=== PATIENT | female | born 1970 | race African-American/Black ===

== ENCOUNTER → 2016-11-21 | Outpatient (CLI) | payer OTHER ==
[2016-10-06 04:09] VITALS: BP 130/80
[~2016-11-21] MED LIST: AMLO10TA2 PO; BACL10TA PO; LEVO112T4 PO; LISI10TA2 PO; NAPR375T3 PO
[2016-11-21 15:48] LABS: BASO # 0.1 x10^3/uL (0.0-0.2); BASO % 1 % (0-3); EOS % 1 % (0-3); HEMATOCRIT 42.1 % (36.0-47.0); HEMOGLOBIN 13.8 g/dL (12.0-15.5); LYMPH # 2.1 x10^3/uL (1.0-4.8); LYMPH % 32 % (24-48); MEAN CORPUSCULAR HEMOGLOBIN 30 pg (25-35); MEAN CORPUSCULAR HGB CONC 33 g/dL (31-37); MEAN CORPUSCULAR VOLUME 91 fL (79-100); MONO % 7 % (0-9); NEUT % 58 % (31-73); PLATELET COUNT 308 x10^3/uL (140-400); RED BLOOD COUNT 4.61 x10^6/uL (3.50-5.40); RED CELL DISTRIBUTION WIDTH 14.4 % (11.5-14.5); WHITE BLOOD COUNT 6.5 x10^3/uL (4.0-11.0)
== END | disposition home or self-care (01) ==
LOC: SURGPAT 14:42
PROVIDERS: ATTEND Obstetrics & Gynecology
DX: Z01.818 Encounter for other preprocedural examination (principal)
CPT/HCPCS: 36415; 85027

== ENCOUNTER 2016-11-28 05:45 | Day surgery (SDC) | payer OTHER ==
[2016-11-28] MEDS ORDERED: CEFOXITIN 1GM IVPB FOR OMNI 50 ML IV PRN (06:00)
[2016-11-28] MEDS ORDERED: MORPHINE SULFATE 2 MG/ML DISP.SYRIN. IV PRN (07:00)
[2016-11-28] MEDS ORDERED: IV RINGERS,LACTATED 1000ML 1,000 ML IV SCH (07:00)
[2016-11-28] MEDS ORDERED: PROCHLORPERAZINE 10 MG/2 ML VIAL. IV PRN (07:00)
[2016-11-28] MEDS ORDERED: FENTANYL PF 100 MCG/2 ML VIAL. IV PRN (07:00)
[2016-11-28] MEDS ORDERED: ONDANSETRON PF 4 MG/2 ML VIAL. IV PRN (07:00)
[2016-11-28] MEDS ORDERED: HYDROMORPHONE 2 MG/ML VIAL. IV PRN (07:00)
[2016-11-28] MEDS ORDERED: LIDOCAINE 1% 1 ML SYRINGE. ID PRN (07:00)
[2016-11-28] MEDS ORDERED: 0.9 % SODIUM CHLORIDE 50 ML VIAL. IJ ONE (07:03)
[2016-11-28] MEDS ORDERED: METHYLENE BLUE 1% 1 ML VIAL. ONE (07:03)
[2016-11-28] MEDS ORDERED: BUPIVACAINE-EPI 0.25%-1:200000 MPF 30 ML VIAL. ONE (07:03)
[2016-11-28] MEDS ORDERED: ROCURONIUM 50 MG/5 ML VIAL. ONE (07:06)
[2016-11-28] MEDS ORDERED: DEXAMETHASONE SOD PHOS 20 MG/5 ML VIAL. ONE (07:06)
[2016-11-28] MEDS ORDERED: LIDOCAINE 2% 100 MG/5 ML DISP.SYRIN. ONE (07:06)
[2016-11-28] MEDS ORDERED: FAMOTIDINE 20 MG/2 ML VIAL ONE (07:06)
[2016-11-28] MEDS ORDERED: PROPOFOL 20 ML IV ONE (07:06)
[2016-11-28] MEDS ORDERED: ONDANSETRON PF 4 MG/2 ML VIAL. ONE (07:06)
[2016-11-28] MEDS ORDERED: FENTANYL PF 100 MCG/2 ML VIAL. ONE (07:06)
[2016-11-28] MEDS ORDERED: KETOROLAC 30 MG/ML SYRINGE FOR OR. INJ ONE (07:55)
[2016-11-28] MEDS ORDERED: PHENYLEPHRINE in 0.9% NACL PF 1 MG/10 ML DISP.SYRIN. IV ONE (07:55)
[2016-11-28] MEDS ORDERED: NEOSTIGMINE METHYLSULFATE 5 MG/5 ML SYRINGE. ONE (08:39)
[2016-11-28] MEDS ORDERED: GLYCOPYRROLATE 1 MG/5 ML VIAL. ONE (08:39)
--- NOTE | 2016-11-28 08:59 | PDOC ---
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 Jackie Woody Rug Hooker Dr. Maggi Gonsales Anesthesiologist see anesthesia records Anesthesia Type: General Blood Loss 25cc IV Fluid see anesthesia records Urine Output 100cc clear urine via camara Specimens Obtained left tube and ovary Findings enlarged cyst of left ovary, omental adhesions to anterior abdominal wall, cyst adhesed to left sidewall and small bowel to vaginal cuff, right ovary adhesed to right sidewall Complications none Additional Remarks [id number] JACKIE WOODY MD Nov 28, 2016 08:59
[2016-11-28] MEDS ORDERED: MAG HYDROX/AL HYDROX/SIMETH 30 ML ORAL.SUSP PO PRN (09:00)
[2016-11-28] MEDS ORDERED: 0.9 % SODIUM CHLORIDE 10 ML DISP.SYRIN. IV PRN (09:00)
[2016-11-28] MEDS ORDERED: DIPHENHYDRAMINE 50 MG/ML VIAL IV PRN (09:00)
[2016-11-28] MEDS ORDERED: HYDROCODONE/APAP 5/325MG TABLET. PO PRN (09:00)
[2016-11-28] MEDS ORDERED: CALCIUM CARBONATE 500 MG TAB.CHEW PO PRN (09:00)
[2016-11-28] MEDS ORDERED: NALOXONE 0.4 MG/ML VIAL. IV PRN (09:00)
[2016-11-28] MEDS ORDERED: SIMETHICONE 80 MG TAB.CHEW PO PRN (09:00)
[2016-11-28] MEDS ORDERED: DIPHENHYDRAMINE HCL 25 MG CAPSULE PO PRN (09:00)
[2016-11-28] MEDS ORDERED: OXYC-323 PO (09:16)
[2016-11-28] MEDS: FENTANYL PF 100 MCG/2 ML VIAL. IV PRN ×2 (09:19→09:32)
[2016-11-28] MEDS ORDERED: OXYCODONE/APAP 5/325 TABLET. PO ONE (10:30)
[2016-11-28 11:15] VITALS: BP 124/85
--- NOTE | 2016-11-28 12:00 | OP ---
DATE OF SURGERY: 11/28/2016 PREOPERATIVE DIAGNOSES: Enlarged left ovarian cyst with pelvic pain. POSTOPERATIVE DIAGNOSES: Enlarged left ovarian cyst with pelvic pain with a clear cystic lesion of the left ovary with pelvic adhesive disease. PROCEDURE: Operative laparoscopy with LSO and enterolysis with small bowel stepped to the vaginal cuff, omentum to the anterior abdominal wall, and left and right ovaries were stepped to the sidewall respectively. SURGEONS: Carmelo Woody M.D. and Maggi Gonsales MD ANESTHESIA: General. ESTIMATED BLOOD LOSS: 25 mL. URINE OUTPUT: 100 mL clear via Reyez catheter. SPECIMEN REMOVED: Left tube and ovary. FINDINGS: Enlarged cyst of the left ovary, omental adhesions to anterior abdominal wall, enlarged cystic lesions of the left ovary adhesed to the left sidewall with omentum adhesed to the left ovarian complex and small bowel was adhesed to the vaginal cuff on the right side and then once it was peeled away the right tube and ovary were kind of filmy encased to the right sidewall. COMPLICATIONS: None. DESCRIPTION OF PROCEDURE: This patient was taken to the operating room where general anesthesia was placed. The patient was placed in a dorsal lithotomy position in [facility]. The patient's abdomen and vagina were prepped and draped in the normal sterile fashion and a Reyez catheter had been previously inserted under sterile technique. At this point, a sponge stick was placed in the patient's vagina. Top gloves were discarded and changed. Attention was then turned to the abdomen where a small supraumbilical and skin incision was made with the scalpel. A curved Gissell was used to dissect through the subcuticular layer to the fascia. A 5 mm Visiport was used to directly enter the abdominal cavity. Opening patient pressure was 3 mmHg. Carbon dioxide gas was used to appropriately insufflate the abdominal cavity to maintain a pressure of 15 mmHg. The patient was placed in Trendelenburg position. The omental adhesions were seen on the left anterior abdominal wall. We went above that and placed the left lower quadrant port, a 5 mm Ethicon disposable port atraumatically. The right side was clear. It was also placed atraumatically in a clear area after transilluminating the anterior abdominal wall. Once this was done, the LigaSure Advance was used to take down the omental adhesions on the left side. Then, going down and finding the enlarged left cystic ovary first having to peel off some of the filmy peritoneal and omental adhesions finding a bluish, hued, very enlarged, probably 8-10 cm consistent with her 10 cm sonogram. It did appear cystic in nature. We were able to do it, it was just very hard to manipulate it after taking down all the peritoneal and omental adhesions off of it, elevating it, and peeling it off the sidewall as well. It was decided to take a clear area and go ahead and opened up the cyst and clear yellow straw-colored fluid did return, benign cystic fluid. At this point, we were able to manipulate it better, peeled it off the sidewall, find the IP ligament and cauterize and cut it high right into the ovary and then peeled the rest of the cyst wall off. Once it was completely free, we did take down the small bowel off the vaginal cuff. We did find the right tube and ovary and take off some of the encasing peritoneal adhesions off of it and make sure it looked normal. Normal appendix was seen, normal liver edge was seen, the bowel looked grossly normal. There was no active bleeding at all. So at this point, a 10-12 suprapubic port was placed over ____ Pfannenstiel skin incision. A 10-12 atraumatic port was placed and the Endocatch bag was placed through this. The specimen was placed through this and removed through the port. Once this was done, the 10-12 was closed using a #0 Vicryl in an interrupted fashion and nylon was placed on the skin here, then ____ irrigating copiously to make sure nothing was bleeding and it was not. The right and left lower quadrant ports were removed under direct visualization as well. These two were hemostatic. Gas was released from the umbilical port. All sponge, lap and needle counts were correct x 2 and the other three incisions were closed with nylon at the level of the skin and injected with a total of 10 mL of local. The patient tolerated the procedure well. A sponge stick was removed. There were no complications. The patient was awakened from anesthesia, extubated, and taken to recovery room in stable condition. CARMELO WOODY MD DR: RAMIRO/tosha JOB#: [id number] / [id number]
--- NOTE | 2016-11-29 16:32 | PATHOLOGY ---
PATHOLOGY REPORT * * * * * * * * FINAL DIAGNOSIS: Fallopian tube and ovary, laparoscopic left salpingo-oophorectomy: - Serous cystadenoma of ovary, with focal hemosiderin laden macrophages within cyst wall. - Few cystic follicles of ovary. - Dense tubo-ovarian adhesions. COMMENT: There is no evidence of malignancy. (JPM:mgemre; d/t: 11/29/16) REPORT ELECTRONICALLY SIGNED BY: Magdy Jackson M.D. DATE/TIME: 11/29/2016 16:31 * * * * * * * * GROSS PATHOLOGY: The specimen is received in formalin, labeled "Maggi Ramos-left ovary and fallopian tube." Received is a 20 g, 5.4 x 3.7 x 1.5 cm previously disrupted and cystic ovary with attached fimbriae. A distinct fallopian tube is not grossly identified. The external surface of the ovary is pink-yang and wrinkled. Sectioning reveals multiple thin-walled and uniloculated cysts ranging from 0.2-4.3 cm in greatest dimension. The internal lining of the cysts are white-yang and wrinkled, with possible adherent yang-brown papillary excrescences. The remaining ovarian stroma is pink-yang and displays a jorgensen yellow and hemorrhagic corpus luteum. Creative Services Writer sections to include the possible fimbria and cystic ovary are submitted in cassettes A1-A4. (TTL; 11/28/2016) INITIAL CPT CODE(S): 20127 Professional services performed [place] [address] Technical services performed by [facility] at [address] [place] [address], [address], [place] [address]. SPECIMEN(S) RECEIVED: A.Left ovary and fallopian tube CLINICAL HISTORY: Left ovarian cyst, pelvic pain PATIENT: MAGGI RAMOS /AGE: 12 1970 (Age: 46) PATIENT #: [id number] CASE #: SPECIMEN COLLECTION DATE: 11/28/2016 SPECIMEN RECEIVED DATE: 11/28/2016 [facility] - [address] [place] [address] - PHONE: [phone] * * * END OF REPORT * * *
== END 2016-11-28 11:25 | disposition home or self-care (01) ==
LOC: SURG 05:45
PROVIDERS: ATTEND Obstetrics & Gynecology
DX: D27.1 Benign neoplasm of left ovary (principal); K66.0 Peritoneal adhesions (postprocedural) (postinfection); I10 Essential (primary) hypertension; Z98.51 Tubal ligation status; Z90.710 Acquired absence of both cervix and uterus; E03.9 Hypothyroidism, unspecified; F17.200 Nicotine dependence, unspecified, uncomplicated
CPT/HCPCS: 36415; 58661; 86850; 86900; 86901; J0694; J1100; J1885; J2270; J2370; J2405; J2704; J2710; J3010; J3490; S0028; 88307; C1769; C1782; J7030; J7120; Q9968

== ENCOUNTER 2017-11-18 04:53 | Emergency (ER) | payer OTHER ==
[2017-11-18] MEDS: ONDANSETRON ODT 4 MG TAB.RAPDIS. PO (05:27)
[2017-11-18] MEDS: IBUPROFEN 800 MG TABLET. PO (05:27)
[2017-11-18] MEDS: ACETAMINOPHEN 500 MG TABLET PO (05:27)
== END 2017-11-18 05:32 | disposition home or self-care (01) ==
LOC: ER 04:53
DX: B34.9 Viral infection, unspecified (principal); E03.9 Hypothyroidism, unspecified; I10 Essential (primary) hypertension; Z90.49 Acquired absence of other specified parts of digestive tract; Z98.51 Tubal ligation status
CPT/HCPCS: 99284; Q0162

== ENCOUNTER 2019-01-31 14:27 | Emergency (ER) | payer OTHER ==
[~2019-01-31] VITALS: Ht 167.6 cm; Wt 104.3 kg
[~2019-01-31 14:27] MED LIST changes: -AMLO10TA2 PO; +AMLO10TA8 PO; +NAPR-695 PO; -NAPR375T3 PO; +ONDA4TAB10 SL; +OXYC1TAB15 PO
[2019-01-31 15:34] LABS: BASO # 0.1 x10^3/uL (0.0-0.2); BASO % 1 % (0-3); EOS # 0.1 x10^3/uL (0.0-0.7); EOS % 2 % (0-3); HEMATOCRIT 42.4 % (36.0-47.0); LYMPH # 2.2 x10^3/uL (1.0-4.8); LYMPH % 35 % (24-48); MEAN CORPUSCULAR HEMOGLOBIN 30 pg (25-35); MEAN CORPUSCULAR HGB CONC 33 g/dL (31-37); MEAN CORPUSCULAR VOLUME 90 fL (79-100); MONO # 0.4 x10^3/uL (0.0-1.1); MONO % 7 % (0-9); NEUT # 3.6 x10^3uL (1.8-7.7); NEUT % 56 % (31-73); PLATELET COUNT 317 x10^3/uL (140-400); RED BLOOD COUNT 4.69 x10^6/uL (3.50-5.40); RED CELL DISTRIBUTION WIDTH 15.6 % (11.5-14.5); WHITE BLOOD COUNT 6.4 x10^3/uL (4.0-11.0)
--- NOTE | 2019-01-31 15:36 | PHYS DOC ---
Past Medical History Past Medical History: Hypertension, Hypothyroid Past Surgical History: Hysterectomy, Tubal ligation, Other Additional Past Surgical Histo: OVARY REMOVED Smoking: Cigarettes, Less than 1pk/day Additional Information: 0.25 PPD Alcohol Use: None Drug Use: None Adult General Chief Complaint Chief Complaint: DIZZY/LIGHT HEADED HPI HPI Patient is a 48 year old female who presents with complaining of dizziness and right-sided chest pain. Patient complaining of intermittent episodes of positional dizziness with a standing up since yesterday that last for a few seconds and associated with blurred vision without headache, focal neuro deficit, fever and chills, headache. Patient also complaining of right upper chest and shoulder pain that getting worse with movement of right shoulder and rated her pain 5/10. Patient said the pain radiated to her shoulder blade. Patient complaining of nausea without vomiting. Patient also complaining of discomfort feeling in her upper abdomen. Patient denies diarrhea, urinary symptoms, recent head injury. Patient states she had episodes of dizziness previously and diagnosed with elevation of blood pressure. Patient states she has history of hypertension and ran out of her medication for couple days but it was re-started today. Review of Systems Review of Systems Constitutional: Denies fever or chills [] Eyes: Denies change in visual acuity, redness, or eye pain , reports blurred vision[] HENT: Denies nasal congestion or sore throat [] Respiratory: Denies cough or shortness of breath [] Cardiovascular: No additional information not addressed in HPI [] GI: Reports abdominal pain, nausea, denies vomiting, bloody stools or diarrhea [ ] : Denies dysuria or hematuria [] Musculoskeletal: Denies back pain or joint pain [] Integument: Denies rash or skin lesions [] Neurologic: Denies headache, focal weakness or sensory changes [] Endocrine: Denies polyuria or polydipsia [] All other systems were reviewed and found to be within normal limits, except as documented in this note. Allergies Allergies Allergies Coded Allergies Type Severity Reaction Last Updated Verified No Known Drug Allergies 11/28/16 No Physical Exam Physical Exam Constitutional: Well developed, well nourished, mild distress, non-toxic appearance. [] HENT: Normocephalic, atraumatic, bilateral external ears normal, oropharynx moist, no oral exudates, nose normal. [] Eyes: PERRLA, EOMI, conjunctiva normal, no discharge. [] Neck: Normal range of motion, no tenderness, supple, no stridor. [] Cardiovascular:Heart rate regular rhythm, no murmur [] Lungs & Thorax: Bilateral breath sounds clear to auscultation [] Abdomen: Bowel sounds normal, soft, no tenderness, no masses, no pulsatile masses. [] Skin: Warm, dry, no erythema, no rash. [] Back: No tenderness, no CVA tenderness. [] Extremities: No tenderness, no cyanosis, no clubbing, ROM intact, no edema. [] Neurologic: Alert and oriented X 3, normal motor function, normal sensory function, no focal deficits noted. [] Psychologic: Affect normal, judgement normal, mood normal. [] Current Patient Data Vital Signs Vital Signs Date Time Temp Pulse Resp B/P (MAP) Pulse Ox O2 Delivery O2 Flow Rate FiO2 01/31/19 14:46 98.7 71 16 135/84 (101) 98 Room Air 98.7 Lab Values Laboratory Tests Test 01/31/19 15:06 01/31/19 15:26 01/31/19 15:55 Glucose (Fingerstick) 111 mg/dL (70-99) H White Blood Count 6.4 x10^3/uL (4.0-11.0) Red Blood Count 4.69 x10^6/uL (3.50-5.40) Hemoglobin 14.0 g/dL (12.0-15.5) Hematocrit 42.4 % (36.0-47.0) Mean Corpuscular Volume 90 fL (79-100) Mean Corpuscular Hemoglobin 30 pg (25-35) Mean Corpuscular Hemoglobin Concent 33 g/dL (31-37) Red Cell Distribution Width 15.6 % (11.5-14.5) H Platelet Count 317 x10^3/uL (140-400) Neutrophils (%) (Auto) 56 % (31-73) Lymphocytes (%) (Auto) 35 % (24-48) Monocytes (%) (Auto) 7 % (0-9) Eosinophils (%) (Auto) 2 % (0-3) Basophils (%) (Auto) 1 % (0-3) Neutrophils # (Auto) 3.6 x10^3uL (1.8-7.7) Lymphocytes # (Auto) 2.2 x10^3/uL (1.0-4.8) Monocytes # (Auto) 0.4 x10^3/uL (0.0-1.1) Eosinophils # (Auto) 0.1 x10^3/uL (0.0-0.7) Basophils # (Auto) 0.1 x10^3/uL (0.0-0.2) Sodium Level 143 mmol/L (136-145) Potassium Level 3.6 mmol/L (3.5-5.1) Chloride Level 104 mmol/L (98-107) Carbon Dioxide Level 29 mmol/L (21-32) Anion Gap 10 (6-14) Blood Urea Nitrogen 10 mg/dL (7-20) Creatinine 0.9 mg/dL (0.6-1.0) Estimated GFR (Cockcroft-Gault) 80.5 BUN/Creatinine Ratio 11 (6-20) Glucose Level 102 mg/dL (70-99) H Calcium Level 8.7 mg/dL (8.5-10.1) Magnesium Level 2.0 mg/dL (1.8-2.4) Total Bilirubin 0.2 mg/dL (0.2-1.0) Aspartate Amino Transferase (AST) 13 U/L (15-37) L Alanine Aminotransferase (ALT) 18 U/L (14-59) Alkaline Phosphatase 52 U/L (46-116) Creatine Kinase 52 U/L (26-192) Troponin I Quantitative < 0.017 ng/mL (0.000-0.055) CJ-Orr-H-Type Natriuretic Peptide 92 pg/mL (0-124) Total Protein 7.1 g/dL (6.4-8.2) Albumin 3.4 g/dL (3.4-5.0) Albumin/Globulin Ratio 0.9 (1.0-1.7) L Lipase 102 U/L (73-393) Laboratory Tests 01/31/19 15:26 Laboratory Tests 01/31/19 15:55 EKG EKG EKG interpreted by me. EKG at 1501 showed normal sinus rhythm at rate of 67, left donahue axis, nonspecific T-wave abnormalities, no acute ST and T-wave abnormalities. Radiology/Procedures Radiology/Procedures [facility] [address] [place] [address] IMAGING REPORT Signed PATIENT: BELÉN RAMOS ACCOUNT: [id number] : 1970 LOCATION: ER AGE: 48 SEX: F EXAM STATUS: REG ER ORD. PHYSICIAN: MIK RYAN MD REASON: abdominal pain and nausea PROCEDURE: ABDOMEN LTD ABDOMEN LTD History: Abdominal pain, nausea Comparison: None. Findings: Multiple sonographic images of the abdomen are submitted. There is no abnormality of the visualized pancreas, tail not well visualized due to bowel gas and patient's body habitus. Right kidney measured 10.8 x 4.7 x 4.1 cm, no hydronephrosis. Inferior vena cava is poorly visualized due to bowel gas and patient's body habitus. Visualized abdominal aortic aortic caliber is within normal limits. Gallbladder is present, contracted appearance although no intraluminal abnormality or wall thickening. Common bile duct is within normal limits at 0.3 cm. There is some coarsening of the hepatic echotexture, likely Juan's morphology of the liver. Right lobe of the liver measured 19.1 cm longitudinal. Impression: 1. There is nonspecific contracted appearance of the gallbladder although no intraluminal abnormality or wall thickening. There is no biliary ductal dilatation. 2. There may be hepatic steatosis. Electronically signed by: Sanjana Douglas MD (01/31/2019 4:22 PM) [id number] DICTATED and SIGNED BY: SANJANA DOUGLAS MD DATE: 01/31/19 1622 [facility] [address] [place] [address] IMAGING REPORT Signed PATIENT: BELÉN RAMOS ACCOUNT: [id number] : 1970 LOCATION: ER AGE: 48 SEX: F EXAM STATUS: REG ER ORD. PHYSICIAN: MIK RYAN MD REASON: dizziness,ALSO CT AND SONO PROCEDURE: PORTABLE CHEST 1V PORTABLE CHEST 1V History: PT STATES CHEST PAIN. . No prior study for comparison. Cardiac silhouette is borderline prominent, but likely accentuated by portable technique. No evidence of pneumothorax. No pleural effusion. No focal airspace consolidation. Regional skeleton appears grossly intact. IMPRESSION: No acute infiltrate. Electronically signed by: Deangelo Foster MD (01/31/2019 4:27 PM) [id number] DICTATED and SIGNED BY: DEANGELO FOSTER MD DATE: 01/31/19 1627 [facility] [address] [place] [address] IMAGING REPORT Signed PATIENT: BELÉN RAMOS ACCOUNT: [id number] : 1970 LOCATION: ER AGE: 48 SEX: F EXAM STATUS: REG ER ORD. PHYSICIAN: MIK RYAN MD REASON: dizziness PROCEDURE: CT HEAD WO CONTRAST CT HEAD WO CONTRAST History: Dizziness, nausea Comparison: None. Technique: Noncontrast CT imaging was performed of the head. Exposure: One or more of the following individualized dose reduction techniques were utilized for this examination: 1. Automated exposure control 2. Adjustment of the mA and/or kV according to patient size 3. Use of iterative reconstruction technique. Findings: No acute extra-axial or parenchymal hemorrhage is identified. There is no significant intra-axial mass effect, midline shift, or extra-axial fluid collection. The rivera-white differentiation of the major vascular territories is preserved. The ventricles, sulci, and cisterns are within normal limits in size and configuration. Mastoid air cells are aerated. There is very minimal sphenoid sinus and left maxillary sinus mucosal thickening. No acute calvarial abnormality is identified. Impression: 1. No acute intracranial abnormality is identified. Electronically signed by: Sanjana Douglas MD (01/31/2019 4:16 PM) [facility] DICTATED and SIGNED BY: SANJANA DOUGLAS MD DATE: 01/31/19 1616 Course & Med Decision Making Course & Med Decision Making Pertinent Labs and Imaging studies reviewed. (See chart for details) Evaluation of patient in ER showed 48-year-old female patient with complaining of episodes of dizziness after ran out of her blood pressure medication for couple days. Patient also complaining of left-sided chest pain. Patient had unremarkable physical exam and labs and EKG and CT head and gallbladder ultrasound. Patient informed about test results and needs to continue her blood pressure medication. Patient felt comfortable to go home without taking any medication from emergency room. Dragon Disclaimer Dragon Disclaimer This electronic medical record was generated, in whole or in part, using a voice recognition dictation system. Departure Departure Impression: Primary Impression: Dizziness Additional Impressions: Right-sided chest pain Tobacco abuse Tobacco abuse counseling Disposition: HOME, SELF-CARE (1740) Condition: IMPROVED Referrals: NADER DUMONT APRN (PCP) Patient Instructions: Chest Wall Pain, Dizziness, Managing Your High Blood Pressure, Smoking Cessation, Tips For Success Additional Instructions: Drink plenty of liquids Follow-up with your primary care physician in 3-5 days Return to ER if not getting better Problem Qualifiers MIK RYAN MD Jan 31, 2019 15:36
--- NOTE | 2019-01-31 16:05 | EKG ---
[facility] [address] [place] [address] Test Date: 2019-01-31 Test Time: 15:01:46 Pat Name: BELÉN RAMOS Department: Room: Gender: F Mother Helper: : 1970 Requested By: MIK RYAN Order Number: [id number] Reading MD: Chad Moyer MD Measurements Intervals Timpson Rate: 66 P: 46 [place]: 158 QRS: -16 QRSD: 74 T: 54 QT: 404 QTc: 429 Interpretive Statements SINUS RHYTHM CONSIDER INFERIOR INFARCT Electronically Signed On 02-04-2019 15:51:14 CDT by Chad Moyer MD
[2019-01-31 16:17] LABS: CALCIUM 8.7 mg/dL (8.5-10.1); CREATININE 0.9 mg/dL (0.6-1.0); GFR 80.5; POTASSIUM 3.6 mmol/L (3.5-5.1)
--- NOTE | 2019-01-31 16:19 | RAD ---
CT HEAD WO CONTRAST History: Dizziness, nausea Comparison: None. Technique: Noncontrast CT imaging was performed of the head. Exposure: One or more of the following individualized dose reduction techniques were utilized for this examination: 1. Automated exposure control 2. Adjustment of the mA and/or kV according to patient size 3. Use of iterative reconstruction technique. Findings: No acute extra-axial or parenchymal hemorrhage is identified. There is no significant intra-axial mass effect, midline shift, or extra-axial fluid collection. The rivera-white differentiation of the major vascular territories is preserved. The ventricles, sulci, and cisterns are within normal limits in size and configuration. Mastoid air cells are aerated. There is very minimal sphenoid sinus and left maxillary sinus mucosal thickening. No acute calvarial abnormality is identified. Impression: 1. No acute intracranial abnormality is identified. Electronically signed by: Meek Douglas MD (01/31/2019 4:16 PM) [facility]
[2019-01-31 16:24] LABS: ALBUMIN 3.4 g/dL (3.4-5.0); ALBUMIN/GLOBULIN RATIO 0.9 (1.0-1.7); TOTAL BILIRUBIN 0.2 mg/dL (0.2-1.0); TOTAL PROTEIN 7.1 g/dL (6.4-8.2)
--- NOTE | 2019-01-31 16:25 | RAD ---
ABDOMEN LTD History: Abdominal pain, nausea Comparison: None. Findings: Multiple sonographic images of the abdomen are submitted. There is no abnormality of the visualized pancreas, tail not well visualized due to bowel gas and patient's body habitus. Right kidney measured 10.8 x 4.7 x 4.1 cm, no hydronephrosis. Inferior vena cava is poorly visualized due to bowel gas and patient's body habitus. Visualized abdominal aortic aortic caliber is within normal limits. Gallbladder is present, contracted appearance although no intraluminal abnormality or wall thickening. Common bile duct is within normal limits at 0.3 cm. There is some coarsening of the hepatic echotexture, likely Juan's morphology of the liver. Right lobe of the liver measured 19.1 cm longitudinal. Impression: 1. There is nonspecific contracted appearance of the gallbladder although no intraluminal abnormality or wall thickening. There is no biliary ductal dilatation. 2. There may be hepatic steatosis. Electronically signed by: Meek Douglas MD (01/31/2019 4:22 PM) [id number]
--- NOTE | 2019-01-31 16:30 | RAD ---
PORTABLE CHEST 1V History: PT STATES CHEST PAIN. . No prior study for comparison. Cardiac silhouette is borderline prominent, but likely accentuated by portable technique. No evidence of pneumothorax. No pleural effusion. No focal airspace consolidation. Regional skeleton appears grossly intact. IMPRESSION: No acute infiltrate. Electronically signed by: Deangelo Foster MD (01/31/2019 4:27 PM) [id number]
[2019-01-31 18:00] VITALS: BP 121/82
== END 2019-01-31 18:08 | disposition home or self-care (01) ==
LOC: ER 14:27
DX: R42 Dizziness and giddiness (principal); R07.89 Other chest pain; F17.210 Nicotine dependence, cigarettes, uncomplicated; Z71.6 Tobacco abuse counseling; I10 Essential (primary) hypertension; E03.9 Hypothyroidism, unspecified; Z90.710 Acquired absence of both cervix and uterus; Z98.51 Tubal ligation status
CPT/HCPCS: 36415; 70450; 71045; 76705; 80053; 82550; 82962; 83690; 83735; 83880; 84484; 85025; 93005; 99284-25